=== PATIENT | male | born 1985 | race Caucasian/White ===

== ENCOUNTER 2021-03-07 03:32 | Day surgery (SDC) | payer OTHER ==
[2021-03-07] MEDS ORDERED: Fentanyl 100 MCG/2 ML VIAL ONE ×2 (03:55→05:59)
[2021-03-07] MEDS ORDERED: Dexamethasone 20 MG/5 ML VIAL ONE (04:28)
[2021-03-07] MEDS ORDERED: Lidocaine 1% PF 5 ML VIAL ONE (04:28)
[2021-03-07] MEDS ORDERED: Ondansetron PF 4 MG/2 ML Vial ONE (04:28)
[2021-03-07] MEDS ORDERED: PROPOFOL 200 MG/20 ML VIAL ONE (04:28)
[2021-03-07] MEDS ORDERED: Levofloxacin 500 mg/D5W 100 ml Premix Bag ONE (04:33)
[2021-03-07] MEDS ORDERED: Bacitracin Zinc Ointment 30 gm TUBE ONE (04:55)
[2021-03-07] MEDS ORDERED: Morphine 2 MG/ML VIAL ONE (06:35)
== END 2021-03-07 08:05 | disposition home or self-care (01) ==
LOC: ERS 03:32 → SDC/OP 03:50
PROVIDERS: ATTEND Urology
PROC: 0VQ5XZZ Repair Scrotum, External Approach (ICD-10-PCS; principal; 2021-03-07)
DX: S31.32XA Laceration with foreign body of scrotum and testes, initial encounter (principal); F17.200 Nicotine dependence, unspecified, uncomplicated; W26.8XXA Contact with other sharp object(s), not elsewhere classified, initial encounter; Y92.814 Boat as the place of occurrence of the external cause; Y99.0 Civilian activity done for income or pay
CPT/HCPCS: 88304; 99285; G0390; J1100; J1956; J2270; J2405; J2704; J3010

== ENCOUNTER 2023-04-01 11:45 | Day surgery (SDC) | payer BC ==
[2023-03-31 11:09] VITALS: BMI 29.4
[2023-04-01] MEDS ORDERED: fentaNYL 50 mcg/mL 1 mL Vial ONE ×5 (12:28→15:50)
[2023-04-01] MEDS ORDERED: Lidocaine 1% MPF 2 ML VIAL ONE (12:29)
[2023-04-01] MEDS ORDERED: Midazolam HCl 2 mg/2 ml Vial ONE (12:29)
[2023-04-01] MEDS ORDERED: fentaNYL PF 100 MCG/2 ML SYRINGE ONE (13:11)
[2023-04-01] MEDS ORDERED: Sodium Chloride 0.9% 100 ML ONE (13:23)
[2023-04-01] MEDS ORDERED: CEFAZOLIN 2 GM VIAL ONE (13:23)
[2023-04-01] MEDS ORDERED: PROPOFOL 200 MG/20 ML VIAL ONE (13:38)
[2023-04-01] MEDS ORDERED: Ondansetron PF 4 MG/2 ML Vial ONE (13:38)
[2023-04-01] MEDS ORDERED: Dexamethasone 20 MG/5 ML VIAL ONE (13:38)
[2023-04-01] MEDS ORDERED: Ropivacaine 0.5% HCl/PF (150 MG/30 ML VIAL) ONE (13:38)
[2023-04-01] MEDS ORDERED: HYDROcodone/Acetaminophen 5/325 mg Tablet ONE (16:37)
== END 2023-04-01 16:57 | disposition home or self-care (01) ==
LOC: SDC 11:45
PROVIDERS: ATTEND Orthopaedic Surgery
PROC: 0QSJ0ZZ Reposition Right Fibula, Open Approach (ICD-10-PCS; principal; 2023-04-01)
PROC: 0QSG0ZZ Reposition Right Tibia, Open Approach (ICD-10-PCS; principal; 2023-04-01)
PROC: 0QSG04Z Reposition Right Tibia with Internal Fixation Device, Open Approach (ICD-10-PCS; principal; 2023-04-01)
DX: S82.851D Displaced trimalleolar fracture of right lower leg, subsequent encounter for closed fracture with routine healing (principal); S93.431A Sprain of tibiofibular ligament of right ankle, initial encounter; Z79.899 Other long term (current) drug therapy; F17.200 Nicotine dependence, unspecified, uncomplicated; V29.00 Motorcycle driver injured in collision with unspecified motor vehicles in nontraffic accident
CPT/HCPCS: C1713; J1100; J2250; J2405; J2704; J2795; J3010; J3490

== ENCOUNTER 2023-08-24 10:43 | Day surgery (SDC) | payer BC ==
[2023-08-23 12:27] VITALS: BMI 25.8
[2023-08-24] MEDS ORDERED: CEFAZOLIN 2 GM VIAL ONE (12:29)
[2023-08-24] MEDS ORDERED: Sodium Chloride 0.9% 100 ML ONE (12:29)
[2023-08-24] MEDS ORDERED: PROPOFOL 20 ML ONE (12:31)
[2023-08-24] MEDS ORDERED: fentaNYL PF 100 MCG/2 ML SYRINGE ONE ×2 (12:31)
[2023-08-24] MEDS ORDERED: Dexamethasone 20 MG/5 ML VIAL ONE (12:54)
[2023-08-24] MEDS ORDERED: Ondansetron PF 4 MG/2 ML Vial ONE (12:54)
[2023-08-24] MEDS ORDERED: Bupivacaine PF 0.5% 30 ML VIAL ONE (13:08)
== END 2023-08-24 14:43 | disposition home or self-care (01) ==
LOC: SDC 10:43
PROVIDERS: ATTEND Orthopaedic Surgery
PROC: 0SPF0JZ Removal of Synthetic Substitute from Right Ankle Joint, Open Approach (ICD-10-PCS; principal; 2023-08-24)
DX: T84.89XA Other specified complication of internal orthopedic prosthetic devices, implants and grafts, initial encounter (principal); Y79.2 Prosthetic and other implants, materials and accessory orthopedic devices associated with adverse incidents
CPT/HCPCS: J1100; J2405; J2704; J3490; S0020